=== PATIENT | male | born 1955 | race Caucasian/White ===

== ENCOUNTER 2019-10-25 15:39 | Outpatient (CLI) | payer BC, OTHER, SELFPAY ==
--- NOTE | ~2019-10-25 | US_ITS ---
US scrotum doppler INDICATION: Hydrocele. TECHNIQUE: Testicular sonogram utilizing grayscale and color Doppler COMPARISON: Ultrasound dated 10/29/2017 FINDINGS: The testes are normal in size and appearance. No focal lesions are seen. The right testes measures 4.2 x 3.4 x 3.1 cm centimeters, and the left testis measures 4 x 3.3 x 3.1 cm cm. There is n ormal vascular flow to both testes. The right and left epididymides appear normal. There are bilateral hydroceles, left greater than right. No evidence for varicocele. IMPRESSION: 1. Bilateral hydroceles, moderate on the left and mild on the right. Reviewed, dictated and finalized at location A. [employer]
== END 2019-10-25 15:40 | disposition home or self-care (01) ==
LOC: ANHIMG 15:45
PROVIDERS: PCP Family Medicine; Visit Provider Urology
DX: N43.3 Hydrocele, unspecified (principal)
CPT/HCPCS: 76870; 93976

== ENCOUNTER 2020-04-09 16:54 | Outpatient (CLI) | payer BC, OTHER, SELFPAY ==
--- NOTE | ~2020-04-09 | US_ITS ---
EXAMINATION: US venous doppler LE EXAM DATE: 04/09/2020 17:27 INDICATION: Acute embolism and thrombosis. TECHNIQUE: Multiple grayscale, color flow and Doppler images of the right lower extremity deep venous system obtained and reviewed. There is no prior study for comparison. FINDINGS: RIGHT SIDE Common femoral: -------- Normal. Profunda femoral: ------- Normal. Femoral: Normal. Popliteal: Normal. Posterior tibial: --------- Normal. Peroneal: Normal. Gastrocnemius: Not visualized. Soleus: Not visualized. Greater saphenous: -----Thrombosed mid to distal aspect.. Lesser saphenous: ------ Not visualized. IMPRESSION: 1. Right greater saphenous superficial venous thrombosis. 2. No evidence of deep venous thrombosis. Reviewed, dictated and finalized at location A.
== END 2020-04-09 16:55 | disposition home or self-care (01) ==
PROVIDERS: PCP Family Medicine; Visit Provider Family Medicine
DX: I82.811 Embolism and thrombosis of superficial veins of right lower extremity (principal)
CPT/HCPCS: 93971

== ENCOUNTER 2020-11-04 09:57 | Emergency (ER) | payer BC, OTHER, SELFPAY ==
[2020-11-04 09:59] VITALS: BP 131/82; PULSE 86; RESP 16; TEMP 35.9; O2SAT 97
[2020-11-04] MEDS: SODIUM CHLORIDE 0.9% IV 500 ML 999 ML IV CONT (10:43)
[2020-11-04 10:56] LABS: Basophils Percent Auto 0.5 % (0.2-1.2); Eosinophils Percent Auto 0.2 % (0-4.4); Hematocrit 44.9 % (42.0-52.0); Immature Granulocyte Absolute 0.01 K/mm3 (0.00-0.031); Immature Granulocyte Percent A 0.1 % (0-0.5); Lymphocytes Absolute Auto 0.53 K/mm3 (0.9-3.2); Lymphocytes Percent Auto 6.2 % (18.3-44.2); Mean Corpuscular HGB Conc 33.4 g/dl (32-36); Mean Corpuscular Hemoglobin 28.4 pg (26-34); Mean Platelet Volume 9.9 fl (7.4-10.4); Monocytes Absolute Auto 0.5 K/mm3 (0.1-0.6); Monocytes Percent Auto 6.3 % (2.6-8.5); Neutrophils Absolute Auto 7.5 K/mm3 (1.3-6.7); Neutrophils Percent Auto 86.7 % (45.5-73.1); Platelet Count Result 279 k/mm3 (150-375); Red Blood Count 5.28 M/mm3 (4.6-6.20); Red Cell Distribution Width 13.6 % (11.5-14.5); White Blood Count 8.6 K/mm3 (4.5-10.0)
[2020-11-04 10:59] LABS: Add Urine Microscopic? YES; Appearance Urine Clear (Clear); Bilirubin Urine Negative (Negative); Blood Urine Negative (Negative); Color Urine Yellow (Yellow); Glucose Urine UA Negative (Negative); Ketones Urine 1+ mg/dL (Negative); Leukocyte Esterase Ur Negative LEU/UL (Negative); Mucus Urine Rare /lpf; Nitrate Urine Negative (Negative); Protein Urine 1+ mg/dL (Negative); RBC Urine 0-2 /hpf (0-2); Urobilinogen Urine Negative mg/dL (<2.0); WBC Urine 0-3 /hpf
[2020-11-04 11:01] LABS: Specific Grav Ur 1.041 (1.001-1.035)
[2020-11-04 11:11] LABS: Anion Gap 10 mmol/L (8-16); Blood Urea Nitrogen 25 mg/dL (9-20); Calcium 9.2 mg/dL (8.4-10.2); Carbon Dioxide 22 mmol/L (22-30); Chloride 104 mmol/L (98-107); Estimated CRCL calculation 88 ml/min; Estimated Glomerular Filt Rate > 60; Glucose 169 mg/dL (75-110); Potassium 3.9 mmol/L (3.4-5.0); Sodium 136 mmol/L (137-145)
[2020-11-04 11:28] VITALS: BP 142/64; PULSE 78; RESP 14; O2SAT 98
--- NOTE | 2020-11-04 12:01 | ED.GENADULT ---
HPI - General Adult General Chief complaint: Urogenital-Male Stated complaint: urinary retention Time Seen by Provider: 11/04/20 10:07 Source: patient Mode of arrival: ambulatory Limitations: no limitations History of Present Illness HPI narrative: Patient is a 65-year-old male who presents to emergency department for evaluation of dysuria that began in the middle of the night with inability to urinate noting suprapubic discomfort and pain radiating to the right upper back at this time patient denies similar occurrence in the past patient notes Thursday began to have difficulty with urination. Patient notes the symptoms progressed until he was unable to urinate. Patient has seen Dr. Vargas with urology in the past on arrival patient does not appear to be distressed or uncomfortable Related Data Allergies Allergy/AdvReac Type Severity Reaction Status Date / Time adhesive tape Allergy Intermediate BLISTERS/ Verified 11/04/20 10:09 cephalexin [From Keflex] Allergy Intermediate Hives Verified 11/04/20 10:09 Sulfa (Sulfonamide Allergy Mild HIVES Verified 11/04/20 10:09 Antibiotics) hydrocodone Allergy Unknown Rash Verified 11/04/20 10:09 Review of Systems Review of Systems: All systems reviewed & are unremarkable except as noted in HPI and below PMFSH Surgical History Surgical History H/O hernia repair H/O partial resection of colon Family History Family History Father Hypertension Mother Hypertension Family history of Alzheimer's disease, Onset Age: 88 Sibling Family history of malignant neoplasm, Onset Age: 52 Carcinoma of colon Other Diabetes mellitus Family history of cardiovascular disease Social History Social History Smoking status: Never smoker Alcohol intake: never Exam Narrative: Exam Narrative: GENERAL: Well-appearing, well-nourished, and in no acute distress. HEAD: Normocephalic, atraumatic. EYES: PERRLA and EOMI. ENT: Nares clear, no rhinorrhea or epistaxis. Mucous membranes moist. CHEST: Clear to auscultation. No respiratory distress. No wheezes rales or rhonchi HEART: Regular rate and rhythm. No murmur heard. Normal peripheral pulses. ABDOMEN: Soft, suprapubic tenderness at the level of the bladder, nondistended EXTREMITIES: Normal range of motion. No edema. SKIN: Warm, dry, no rash. NEURO: No focal deficits. Alert and oriented x3. PSYCH: Normal mood and affect. Course Course Emergency Course: Patient evaluated the emergency department for dysuria was found to be in urinary retention Sidhu catheter was placed he is feeling much better at this time patient denies any pain after the catheter was inserted he is afebrile nontoxic-appearing no distress and felt appropriate for outpatient reevaluation Vital Signs Vital signs: Vital Signs Temperature 96.7 F L 11/04/20 09:59 Pulse Rate 86 11/04/20 09:59 Respiratory Rate 16 11/04/20 09:59 Blood Pressure 131/82 11/04/20 09:59 Pulse Oximetry 97 11/04/20 09:59 Temperature 96.7 F L 11/04/20 09:59 Pulse Rate 78 11/04/20 11:28 Respiratory Rate 14 11/04/20 11:28 Blood Pressure 142/64 H 11/04/20 11:28 Pulse Oximetry 98 11/04/20 11:28 Medical Decision Making [facility] Narrative Medical decision making narrative: Patient will be discharged home with Sidhu catheter in place likely benign prostatic hypertrophy as the etiology will be started on finasteride while waiting to see Dr. Vargas patient agrees with this plan is also been provided with reasons to return Vital Signs Vital Signs: Vital Signs Temperature 96.7 F L 11/04/20 09:59 Pulse Rate 86 11/04/20 09:59 Respiratory Rate 16 11/04/20 09:59 Blood Pressure 131/82 11/04/20 09:59 Pulse Oximetry 97 11/04/20 09:59 Temperature 96.7 F L 11/04/20 09:59 Pul
== END 2020-11-04 12:34 | disposition home or self-care (01) ==
PROVIDERS: Emergency Medicine Emergency Medical Services; Emergency Provider Emergency Medicine; PCP Family Medicine
DX: R33.9 Retention of urine, unspecified (principal); Z90.49 Acquired absence of other specified parts of digestive tract
CPT/HCPCS: 36415; 51702; 80048; 81001; 85025; 87086; 96365; 99284; J0131; J7040

== ENCOUNTER 2020-11-10 13:12 | Emergency (ER) | payer BC, OTHER, SELFPAY ==
--- NOTE | ~2020-11-10 | CT_ITS ---
EXAMINATION: CT abdomen pelvis wo con DATE: 11/10/2020 15:26 INDICATION: Right flank pain TECHNIQUE: Computed tomography (CT) of the abdomen and pelvis was performed without intravenous contr ast. The dose-length product (DLP) was 319.52 mGy-cm. Automated exposure control and iterative recons truction technique were employed. COMPARISON: 12/26/2016 FINDINGS: The lung bases are clear. The heart size is normal. The gallbladder is surgically absent. T he liver, spleen, pancreas, and adrenal glands are normal. Cysts of the kidneys measure up to 2 cm on the left. No stones are identified in the kidneys, ureters, or bladder. There is no hydronephrosis o r hydroureter. The bladder is decompressed by Sidhu catheter. No pathologically enlarged abdominal or pelvic lymph nodes are identified. There is no free intraperitoneal gas or evidence of bowel obstruc tion. There is a surgical anastomosis at the rectosigmoid junction. The appendix is normal. There is mild lumbar spondylosis. IMPRESSION: 1. No CT correlate for the patient's symptoms. Reviewed, dictated and finalized at location A. [employer]
--- NOTE | ~2020-11-10 | XR_ITS ---
EXAMINATION: XR abdomen/kub 1V INDICATION: Right flank pain TECHNIQUE: Supine views of the abdomen were obtained on 2 radiographs. COMPARISON: CT from today FINDINGS: No urolithiasis is identified. The bowel gas pattern is normal. There are no dilated loops of bowel. Cholecystectomy clips are noted in the right upper quadrant. There is a surgical anastomosi s in the pelvis. Mild hip osteoarthritis is noted. IMPRESSION: 1. No urolithiasis identified. Reviewed, dictated and finalized at location A. [employer]
[2020-11-10 13:19] VITALS: BP 147/106; PULSE 107; RESP 18; TEMP 36.1; O2SAT 97
[2020-11-10 13:22] VITALS: BP 97/85; PULSE 101; RESP 18; TEMP 37.1; O2SAT 99
--- NOTE | 2020-11-10 13:38 | ED.ABDPAIN ---
HPI - Abdominal Pain General Chief Complaint: Urogenital-Male Stated Complaint: unable to urinate after loving Time Seen by Provider: 11/10/20 13:21 Source: patient Mode of arrival: ambulatory Limitations: no limitations History of Present Illness HPI narrative: This is a 65 year old male who presents for evaluation of difficulty urinating. He was evaluated for urinary retention 1 week ago. He had a loving catheter placed on 11/04/20 and it was removed in his urologist's office yesterday. He has been having burning with urinary and dribbling since it was removed. He reports right lower back pain. He has lower abdominal pressure. He denies fever or chills. He does report having a migraine headache today. Related Data Allergies Allergy/AdvReac Type Severity Reaction Status Date / Time adhesive tape Allergy Intermediate BLISTERS/ Verified 11/10/20 13:22 cephalexin [From Keflex] Allergy Intermediate Hives Verified 11/10/20 13:22 Sulfa (Sulfonamide Allergy Mild HIVES Verified 11/10/20 13:22 Antibiotics) hydrocodone Allergy Unknown Rash Verified 11/10/20 13:22 Review of Systems Review of Systems: All systems reviewed & are unremarkable except as noted in HPI and below Constitutional: Constitutional: Denies chills and Denies fever(s) Cardiovascular: Cardiovascular: Denies chest pain Respiratory: Respiratory: Denies cough and Denies dyspnea Gastrointestinal: Gastrointestinal: Reports abdominal pain, Denies diarrhea, Denies nausea and Denies vomiting Genitourinary: Genitourinary: Reports oliguria, Reports dysuria and Reports urinary frequency Musculoskeletal: Musculoskeletal: Reports back pain Neurologic: Reports headache(s) [facility] Past Medical History Medical History (Updated 11/10/20 @ 18:23 by Antonieta Joseph MD) Essential (primary) hypertension Lumbar spondylosis Mixed hyperlipidemia Surgical History Surgical History H/O hernia repair H/O partial resection of colon Family History Family History Father Hypertension Mother Hypertension Family history of Alzheimer's disease, Onset Age: 88 Sibling Family history of malignant neoplasm, Onset Age: 52 Carcinoma of colon Other Diabetes mellitus Family history of cardiovascular disease Social History Social History Smoking status: Never smoker Alcohol intake: never Gender identity (if verbalized by the patient): Male Exam Const: General: no acute distress and alert Orientation/consciousness: patient oriented x3 Eyes: Pupils: Equal, round and reactive pupils present EOM: EOMs intact bilaterally Chest: Chest palpation & inspection: normal inspection of the chest Resp: Effort & Inspection: normal respiratory effort and no retractions Auscultation: clear to auscultation bilaterally Cardio: Rate: regular rate Rhythm: regular rhythm Heart sounds: no murmurs GI: GI Palp: Yes Soft to palpation, Yes Tenderness to palpation present (GI) (RUQ, RLQ), No Guarding due to palpation present (GI) and No Rebound tenderness present Skin: General skin exam: normal color Rashes: no rashes Neuro: General: patient oriented x3 and CN's II-XI intact bilaterally Extrem: Other: right arm contracture from previous injury Psych: Mental Status: mental status grossly normal Affect: normal affect Course Reevaluation(s) Reevaluation #1: I Discussed with patient labs. He will be started on antibiotics and discharged with antibiotics. HE has appointment with DR. Vargas on Thursday. Patient reports now back pain is chronic. He has no other complaints. Date: 11/10/20 Time: 16:44 Vital Signs Vital signs: Vital Signs Temperature 97 F L 11/10/20 13:19 Pulse Rate 107 H 11/10/20 13:19 Respiratory Rate 18 11/10/20 13:19 Blood Pressure 147/106 H 11/10/20 13:
[2020-11-10] MEDS: SODIUM CHLORIDE 0.9% IV 1,000 ML 999 ML IV CONT (14:01)
[2020-11-10 14:11] LABS: Basophils Absolute Auto 0.1 K/mm3 (0.0-0.1); Basophils Percent Auto 1.1 % (0.2-1.2); Eosinophils Absolute Auto 0.1 K/mm3 (0-0.3); Eosinophils Percent Auto 0.6 % (0-4.4); Hematocrit 47.2 % (42.0-52.0); Hemoglobin 15.8 g/dL (14.0-18.0); Immature Granulocyte Absolute 0.04 K/mm3 (0.00-0.031); Immature Granulocyte Percent A 0.4 % (0-0.5); Lymphocytes Absolute Auto 0.83 K/mm3 (0.9-3.2); Lymphocytes Percent Auto 8.7 % (18.3-44.2); Mean Corpuscular HGB Conc 33.5 g/dl (32-36); Mean Corpuscular Hemoglobin 28.8 pg (26-34); Monocytes Absolute Auto 0.9 K/mm3 (0.1-0.6); Monocytes Percent Auto 9.3 % (2.6-8.5); Neutrophils Absolute Auto 7.6 K/mm3 (1.3-6.7); Neutrophils Percent Auto 79.9 % (45.5-73.1); Platelet Count Result 422 k/mm3 (150-375); Red Blood Count 5.49 M/mm3 (4.6-6.20); Red Cell Distribution Width 13.6 % (11.5-14.5); White Blood Count 9.5 K/mm3 (4.5-10.0)
[2020-11-10 14:25] LABS: Lactic Acid Reflex 1.9 mmol/L (0.7-2.1)
[2020-11-10 14:26] LABS: Alanine Aminotransferase 30 U/L (4-50); Albumin Level 4.5 g/dL (3.5-5.1); Alkaline Phosphatase 52 U/L (38-126); Anion Gap 10 mmol/L (8-16); Aspartate Amino Transferase 22 U/L (17-59); Bilirubin,Total 0.5 mg/dL (0.2-1.3); Blood Urea Nitrogen 29 mg/dL (9-20); Carbon Dioxide 28 mmol/L (22-30); Chloride 96 mmol/L (98-107); Estimated CRCL calculation 68 ml/min; Estimated Glomerular Filt Rate > 60; Glucose 105 mg/dL (75-110); Lipase 86 U/L (23-300); Potassium 3.9 mmol/L (3.4-5.0); Sodium 134 mmol/L (137-145)
[2020-11-10 14:31] LABS: Add Urine Microscopic? YES; Appearance Urine Clear (Clear); Bilirubin Urine Negative (Negative); Blood Urine Negative (Negative); Color Urine Amber (Yellow); Glucose Urine UA Negative (Negative); Ketones Urine Negative (Negative); Leukocyte Esterase Ur Negative LEU/UL (Negative); Mucus Urine Rare /lpf; Nitrate Urine Positive (Negative); Protein Urine Negative (Negative); RBC Urine 0-2 /hpf (0-2); Specific Grav Ur 1.014 (1.001-1.035); WBC Urine 0-3 /hpf
[2020-11-10 15:43] VITALS: BP 129/62; PULSE 84; RESP 16; O2SAT 98
== END 2020-11-10 17:40 | disposition home or self-care (01) ==
PROVIDERS: Emergency Provider General Practice; PCP Family Medicine
DX: N39.0 Urinary tract infection, site not specified (principal); R33.9 Retention of urine, unspecified; R10.9 Unspecified abdominal pain; I10 Essential (primary) hypertension; E78.2 Mixed hyperlipidemia; Z90.49 Acquired absence of other specified parts of digestive tract; M47.816 Spondylosis without myelopathy or radiculopathy, lumbar region
CPT/HCPCS: 36415; 51702; 74018; 74176; 80053; 81001; 83605; 83690; 85025; 87086; 96361; 96365; 99284; J0131; J7030

== ENCOUNTER 2021-06-27 12:13 | Emergency (ER) | payer BC, OTHER, SELFPAY ==
--- NOTE | ~2021-06-27 | XR_ITS ---
EXAMINATION: [id number] DATE: 06/27/2021 12:47 INDICATION: Lateral right rib pain. Fall 4 weeks ago. TECHNIQUE: A frontal view of the chest and 2 views on 3 radiographs of the right ribs were obtained. COMPARISON: Chest single view 12/24/2016, CT abdomen and pelvis 11/10/2020 FINDINGS: There is mild scarring at left lung apex. No pleural effusion or pneumothorax. The heart si ze is normal. Surgical clips in the right upper quadrant are likely from cholecystectomy. There is a fracture of right 10th rib. IMPRESSION: 1. Fracture of right 10th rib. Reviewed, dictated and finalized at location A.
[2021-06-27 12:25] VITALS: BP 124/73; PULSE 60; RESP 18; TEMP 36.6; O2SAT 99
--- NOTE | 2021-06-27 12:25 | ED.BACK ---
HPI - Back Pain/Injury General Chief Complaint: Back Pain/Injury Stated Complaint: Rt Side Pain Source: patient and RN notes reviewed Mode of arrival: ambulatory Limitations: no limitations History of Present Illness HPI Narrative: Gaurav is a 65-year-old male patient who fell getting out of the back of his truck and fell hitting his right ribs on the back of his truck. Patient states the incident occurred 4 to 5 weeks ago. Patient states that he has a prescription for tramadol and he will take 1 with severe pain. Otherwise he has not been using any ice heat or other measures. Patient states he knew to take deep breaths frequently. Patient denies cough fever or any other issues. Patient denies any loss of consciousness during the incident. Patient states there was a bruising 4 to 5 weeks ago after injury. Patient states bruising has been gone the last 3 weeks. MD elicited complaint: other (right rib pain) Pertinent past history: prior back pain Timing: constant Severity: moderate Similar Symptoms Previously: No Related Data Home Medications Medication Instructions Recorded Confirmed finasteride 5 mg tablet 5 mg PO DAILY 11/21/20 06/27/21 Allergies Allergy/AdvReac Type Severity Reaction Status Date / Time adhesive tape Allergy Mild BLISTERS/ Verified 06/27/21 12:34 cephalexin [From Keflex] Allergy Mild Hives Verified 06/27/21 12:34 hydrocodone Allergy Mild Rash Verified 06/27/21 12:34 Sulfa (Sulfonamide Allergy Mild HIVES Verified 06/27/21 12:34 Antibiotics) Review of Systems Review of Systems: CONSTITUTIONAL: Denies body aches, fever, chills, or sweats. EYES: Denies visual changes, redness, or discharge. ENT: Denies rhinorrhea, congestion, sore throat, or otalgia. CARDIOVASCULAR: Denies chest pain, palpitations, or edema. RESPIRATORY: Denies cough or dyspnea. GASTROINTESTINAL: Denies abdominal pain, nausea, vomiting, or diarrhea. GENITOURINARY: Denies dysuria or hematuria. SKIN: Denies rash, itching, or wounds. MUSCULOSKELETAL: + right rib pain, denies back pain, joint pain, or myalgia. NEUROLOGIC: Denies headache, numbness, tingling, or weakness. PSYCH: Denies depression or anxiety. All systems reviewed & are unremarkable except as noted in HPI and below PMFSH Past Medical History Medical History Essential (primary) hypertension Lumbar spondylosis Mixed hyperlipidemia Surgical History Surgical History H/O hernia repair H/O partial resection of colon Family History Family History Father Hypertension Mother Hypertension Family history of Alzheimer's disease, Onset Age: 88 Sibling Family history of malignant neoplasm, Onset Age: 52 Carcinoma of colon Other Diabetes mellitus Family history of cardiovascular disease Social History Social History Alcohol intake: never Gender identity (if verbalized by the patient): Male Comments At time of signature, I have reviewed and agree with nursing past medical, surgical, social and family history unless otherwise noted. Please see nursing chart for further information. There is no relevant family history pertinent to the presenting complaint Exam Narrative: GENERAL: Well-appearing, well-nourished, and in no acute distress. HEAD: Normocephalic, atraumatic. EYES: EOMI. No redness or drainage. Conjunctivae normal. ENT: Mucous membranes pink and moist. Nares clear. No rhinorrhea. NECK: Normal AROM. Supple. No lymphadenopathy. CHEST: No respiratory distress. Clear to auscultation. MUSCULOSKELETAL: No bony tenderness. EXTREMITIES: Normal range of motion. No edema. SKIN: Warm, dry, no rash. Capillary refill normal. Normal skin turgor. NEURO: No focal deficits. Alert and oriented x3. Gait steady. PSYCH: Normal affec
== END 2021-06-27 13:15 | disposition home or self-care (01) ==
PROVIDERS: Emergency Provider Nurse Practitioner Family; PCP Family Medicine
DX: S22.31XA Fracture of one rib, right side, initial encounter for closed fracture (principal); W17.89XA Other fall from one level to another, initial encounter; I10 Essential (primary) hypertension; M47.816 Spondylosis without myelopathy or radiculopathy, lumbar region; E78.2 Mixed hyperlipidemia
CPT/HCPCS: 71101; 99213; G0463

== ENCOUNTER 2022-12-04 05:36 | Emergency (ER) | payer MEDICARE, OTHER, BC, SELFPAY ==
--- NOTE | ~2022-12-04 | XR_ITS ---
Right ankle Technique: AP, oblique, and lateral views were obtained. Clinical History: Pain Findings: There is a traumatic, oblique, mildly displaced fracture of the distal fibular shaft, with fracture centered approximately 6 cm proximal to the tip of the lateral malleolus. There is also a tr ansverse, mildly displaced fracture of the medial malleolus. Small longitudinally oriented posterior malleolus fracture present on lateral view, minimally displaced. There is mild widening of the medial aspect of the ankle mortise.. Mild soft tissue swelling noted. Impression: Traumatic trimalleolar fractures, as detailed above, mildly displaced. Mild widening of the medial aspect of the ankle mortise. Reviewed, dictated and finalized at location . Impression: Traumatic trimalleolar fractures, as detailed above, mildly displaced. Mild widening of the medial aspect of the ankle mortise.
[2022-12-04 05:41] VITALS: BP 139/69; PULSE 62; RESP 18; TEMP 36.7; O2SAT 99
--- NOTE | 2022-12-04 05:47 | ED.GENADULT ---
HPI - General Adult General Chief complaint: Extremity Injury, Lower Stated complaint: R foot pain, s/p fall Time Seen by Provider: 12/04/22 05:44 History of Present Illness HPI narrative: This is a 67-year-old male presenting ED after he fell down 3 stairs. He says his right ankle got caught underneath him. Then had severe pains been unable to bear weight. He denies any other injuries. The fall was purely mechanical. Related Data Allergies Allergy/AdvReac Type Severity Reaction Status Date / Time adhesive tape Allergy Mild BLISTERS/ Verified 08/26/22 13:29 cephalexin [From Keflex] Allergy Mild Hives Verified 08/26/22 13:29 hydrocodone Allergy Mild Rash Verified 08/26/22 13:29 Sulfa (Sulfonamide Allergy Mild HIVES Verified 08/26/22 13:29 Antibiotics) PMFSH Past Medical History Medical History Allergies Arthritis of knee, right Essential (primary) hypertension GERD (gastroesophageal reflux disease) Lumbar spondylosis Mixed hyperlipidemia Surgical History Surgical History H/O hernia repair H/O partial resection of colon History of cholecystectomy History of hand surgery Family History Family History Father Hypertension Heart disease Mother Hypertension Family history of Alzheimer's disease, Onset Age: 88 Sibling Family history of malignant neoplasm, Onset Age: 52 Carcinoma of colon Other Diabetes mellitus Family history of cardiovascular disease Social History Social History Smoking status: Never smoker Alcohol intake: never Substance use: never Current Housing: Decline to Answer Concerned About Future Housing: Decline to Answer Difficulty Paying Gas/Electric Bills: Decline to Answer Difficulty Paying for Meds: Decline to Answer Currently Unemployed: Decline to Answer Education: Decline to Answer Difficulty w/ Childcare or Family Care: Decline to Answer Living arrangements: with family Gender identity (if verbalized by the patient): Male Exam Narrative: APPEARANCE: No apparent distress. Head: atraumatic. EYES: EOMI, NOSE: Atraumatic NECK: Trachea midline RESPIRATORY: No increased rate of breathing Clear to auscultation CARDIOVASCULAR: RRR, ABDOMINAL: Non-distended MUSCULOSKELETAl: focal exam of the right lower extremity revealed tenderness palpation on posterior aspect of the medial and lateral malleolus. No obvious deformities or bruising. Pulses are +2 and sensation light touch is intact. NEURO: Alert. Moving 4/4 extremities SKIN:: Warm, dry. Normal color PSYCHIATRIC: Normal affect Course Vital Signs Vital signs: Vital Signs Temperature 98.1 F 12/04/22 05:41 Pulse Rate 62 12/04/22 05:41 Respiratory Rate 18 12/04/22 05:41 Blood Pressure 139/69 12/04/22 05:41 Pulse Oximetry 99 12/04/22 05:41 Temperature 98.1 F 12/04/22 05:41 Pulse Rate 62 12/04/22 05:41 Respiratory Rate 18 12/04/22 05:41 Blood Pressure 139/69 12/04/22 05:41 Pulse Oximetry 99 12/04/22 05:41 Procedures Orthopedic Splinting/Casting Injury #1: Side: right Lower Extremity Injury Location: ankle Lower Extremity Immobilizer: stirrup splint Splint: customized in ED Pre-Procedure Neuro Vascular Exam: normal Post-Procedure Neuro Vascular Exam: normal Other Orthopedic Equipment: crutches Medical Decision Making MDM Narrative Medical decision making narrative: -Presentation: 67-year-old male presenting with ankle pain after fall. -DDX includes but is not limited to: Ankle sprain, fracture -Co-morbidities complicating care: hypertension, allergies to hydrocodone -Social determinants of health: patient is retired used to work at [employer]. He is accompanied b
[2022-12-04] MEDS: ACETAMINOPHEN 500 MG TABLET 1000 MG PO (05:51)
[2022-12-04] MEDS: oxyCODONE HCL (*CRX) 5 MG TAB IR PO (05:51)
[2022-12-04] MEDS: IBUPROFEN 400 MG TABLET 800 MG PO (05:52)
--- NOTE | 2022-12-04 06:57 | PC.NURSE ---
stirrup splint placed with help of doctor to right lower extremity, crutches teaching given
== END 2022-12-04 07:30 | disposition home or self-care (01) ==
PROVIDERS: Emergency Provider Emergency Medicine; PCP Emergency Medicine
DX: S82.851A Displaced trimalleolar fracture of right lower leg, initial encounter for closed fracture (principal); I10 Essential (primary) hypertension; E78.2 Mixed hyperlipidemia; K21.9 Gastro-esophageal reflux disease without esophagitis; M17.11 Unilateral primary osteoarthritis, right knee; Z90.49 Acquired absence of other specified parts of digestive tract; W10.9XXA Fall (on) (from) unspecified stairs and steps, initial encounter
CPT/HCPCS: 29515; 73610; 99283; 99284; A9270

== ENCOUNTER 2022-12-08 08:48 | Outpatient (CLI) | payer MEDICARE, BC, OTHER, SELFPAY ==
[2022-12-08 12:32] LABS: INR 1.1; Prothrombin Time 13.4 Seconds (11.1-14.7)
[2022-12-08 12:33] LABS: Partial Thromboplastin Time 26.4 SECONDS (22.3-36.8)
[2022-12-08 12:36] LABS: Alanine Aminotransferase 86 U/L (6-50); Albumin Level 4.3 g/dL (3.5-5.1); Alkaline Phosphatase 63 U/L (38-126); Anion Gap 6 mmol/L (8-16); Aspartate Amino Transferase 49 U/L (17-59); Basophils Absolute Auto 0.1 K/mm3 (0.0-0.1); Bilirubin,Total 0.7 mg/dL (0.2-1.3); Blood Urea Nitrogen 19 mg/dL (9-20); Calcium 9.3 mg/dL (8.4-10.2); Carbon Dioxide 26 mmol/L (22-30); Chloride 103 mmol/L (98-107); Eosinophils Absolute Auto 0.2 K/mm3 (0-0.3); Eosinophils Percent Auto 2.4 % (0-4.4); Estimated Glomerular Filt Rate > 60; Glucose 114 mg/dL (65-110); Hematocrit 44.5 % (42.0-52.0); Hemoglobin 14.4 g/dL (14.0-18.0); Immature Granulocyte Absolute 0.01 K/mm3 (0.00-0.031); Immature Granulocyte Percent A 0.2 % (0-0.5); Lymphocytes Absolute Auto 0.69 K/mm3 (0.9-3.2); Lymphocytes Percent Auto 11.2 % (18.3-44.2); Mean Corpuscular HGB Conc 32.4 g/dl (32-36); Mean Corpuscular Hemoglobin 27.9 pg (26-34); Mean Corpuscular Volume 86.1 fl (80-100); Mean Platelet Volume 10.2 fl (7.4-10.4); Monocytes Absolute Auto 0.6 K/mm3 (0.1-0.6); Monocytes Percent Auto 9.1 % (2.6-8.5); Neutrophils Absolute Auto 4.7 K/mm3 (1.3-6.7); Neutrophils Percent Auto 76.1 % (45.5-73.1); Platelet Count Result 304 k/mm3 (150-375); Red Blood Count 5.17 M/mm3 (4.6-6.20); Red Cell Distribution Width 13.5 % (11.5-14.5); Sodium 135 mmol/L (137-145); White Blood Count 6.1 K/mm3 (4.5-10.0)
== END 2022-12-08 08:49 | disposition home or self-care (01) ==
LOC: ANHGOSHLAB 08:53
PROVIDERS: PCP Emergency Medicine; Visit Provider Family Medicine
DX: I10 Essential (primary) hypertension (principal); Z01.818 Encounter for other preprocedural examination
CPT/HCPCS: 36415; 80053; 85025; 85610; 85730

== ENCOUNTER 2022-12-12 00:55 | Day surgery (SDC) | payer MEDICARE, BC, OTHER, SELFPAY ==
[2022-12-08 12:20] VITALS: BMI 30.1
--- NOTE | 2022-12-08 12:45 | PC.NURSE ---
Report to the Outpatient Waiting Room, entrance under the green pavilion located off [facility], at time __10:00am on date ___12/12/22____. Planned Procedure Time: __12:00PM . Time changes happen often and if your time is changed the preop area will call you the afternoon before. - You and your visitor will be asked to self-screen and do not enter if you have any COVID symptoms. - Only one visitor is requested with a max of two and NO children visitors are allowed at this time. - The patient visitor may be requested to leave or wait in car when not with patient due to distancing restrictions. - A mask is optional within the hospital at this time. Patients may have clear liquids (water, carbonated beverages, clear teas, apple juice) until 3 hours prior to surgery with a maximum of 20 ounces. - No food from midnight until time of surgery Take the following medications with a SIP of water the morning of surgery: ___OXYCODONE NEEDED DO NOT STOP ANY OF YOUR OTHER PRESCRIPTION MEDICATIONS PRIOR TO SURGERY ?EXCEPT THE FOLLOWING Medications to discontinue per physician ___NONE Date to take last dose Please no make-up, nail khmer, hairspray, perfume, deodorant, or body powder the day of surgery. No jewelry (including any body piercings) or valuables the day of surgery, leave them at home. Please take a shower or bath the night before, or the morning of, surgery with an antibacterial soap. Wear comfortable, loose fitting clothing. Children are encouraged to wear pajamas. - Jewelry must be removed prior to entering the operating room. Rings and piercings that are not removed may be cut off. - The hospital will not accept responsibility for valuables. - Please leave all valuables, including medications, at home the day of surgery. If you are going home after surgery, a licensed meals on wheels driver must drive you home. - NO public transportation without another adult if you receive anesthesia. - We recommend that an adult stay with you for 24 hours following discharge. - We also recommend that you do not drive, make important decision, drink alcoholic beverages, or take any drugs that were not prescribed by your health care provider for at least 24 hours after your discharge time. Follow any additional instructions given to you from your surgeon. If you or anyone in your household have experienced Covid symptoms in the past week, please notify your surgeon or the nurse liaison at the phone number below for possible testing. Telephone instructions given to __PATIENT and asked if any additional questions and then verbalized understanding. Patient advised to call surgeon office or pre surgery nurse liaison [phone] if any additional questions.
--- NOTE | 2022-12-10 11:24 | PM.IMHP ---
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 He injured his ankle when he missed a step at home and fell hard. This happened on 12/04. He had immediate pain and swelling in the ankle. He went to the emergency room had x-rays done which show a displaced medial and lateral malleolar fractures. There is a small fracture off the posterior malleolus as well. There is lateral subluxation of the talus to the tibia. Patient was seen in the office on 12/05. X-rays reviewed by Dr Grimes. He did recommend ORIF of ankle. This is an unstable fracture is best treated with ORIF. Patient presents today for that. Review of Systems Review of Systems: All systems reviewed & are unremarkable except as noted in HPI and below PMFSH Past Medical History Medical History Allergies Arthritis of knee, right Essential (primary) hypertension GERD (gastroesophageal reflux disease) Lumbar spondylosis Mixed hyperlipidemia Surgical History Surgical History H/O hernia repair H/O partial resection of colon History of cholecystectomy History of hand surgery History of surgery on arm Family History Family History Father Hypertension Heart disease Mother Hypertension Family history of Alzheimer's disease, Onset Age: 88 Sibling Family history of malignant neoplasm, Onset Age: 52 Carcinoma of colon Other Diabetes mellitus Family history of cardiovascular disease Social History Social History Smoking status: Never smoker Alcohol intake: never Substance use: never Lack of Transportation: No Lack of Food: Never True Current Housing: I Have Housing Concerned About Future Housing: No Difficulty Paying Gas/Electric Bills: No Difficulty Paying for Meds: No Currently Unemployed: No Education: Decline to Answer Difficulty w/ Childcare or Family Care: No Living arrangements: with family Additional living arrangements comments: Gender identity (if verbalized by the patient): Male Spiritual care concerns: No Meds Home Medications and Allergies Home Medications Medication Instructions Recorded Confirmed Type finasteride 5 mg tablet 5 mg PO DAILY #90 tabs 12/25/21 12/08/22 Rx tamsulosin 0.4 mg capsule (Flomax) 0.4 mg PO DAILY #10 caps 12/25/21 12/08/22 Rx tramadol 50 mg tablet 50 mg PO Q6H PRN pain 90 days #180 09/25/22 12/08/22 Rx tabs acetaminophen 500 mg tablet 1,000 mg PO TID PRN peterson 7 days #42 12/04/22 12/08/22 Rx tabs oxycodone 5 mg capsule 5 mg PO Q4H PRN pain #20 caps 12/04/22 12/08/22 Rx simvastatin 40 mg tablet 40 mg PO DAILY #90 tabs 12/04/22 12/08/22 Rx famotidine 40 mg tablet 40 mg PO DAILY 12/08/22 12/08/22 History lisinopril 10 mg tablet 10 mg PO QAM 12/08/22 12/08/22 History triamterene 37.5 1 tablet PO QAM 12/08/22 12/08/22 History mg-hydrochlorothiazide 25 mg tablet Allergies Allergy/AdvReac Type Severity Reaction Status Date / Time adhesive tape Allergy Mild BLISTERS Verified 12/08/22 13:18 cephalexin [From Keflex] Allergy Mild Hives Verified 12/08/22 13:18 hydrocodone Allergy Mild Rash Verified 12/08/22 13:18 Sulfa (Sulfonamide Allergy Mild HIVES Verified 12/08/22 13:18 Antibiotics) Exam Narrative: 67-year-old male alert pleasant. Is 5 ft 70879 lb. He is [id number] diffuse swelling around ankle. Calf is nontender. Skin is all intact without blistering. Reports normal sensation except to the lateral heel where he had sural nerve harvest. There is ecchymosis in the medial heel. 2+ dorsalis pedis pulse palpable. Resp: Auscultation: aysha
--- NOTE | 2022-12-11 16:23 | WPDANESEPPF ---
Anes - Initial Pre Proc Eval Procedure: Operation Date: 12/12/22 12:00 Proposed Procedures p Open Reduction Internal Fixation Right Mike B-C Trimalleolar Ankle Fracture - Gaurav Grimes MD Date/Time: 12/11/22 16:23 Surgeon: Gaurav Grimes MD Pre Op Diagnosis: right mike b-c ankle trimalleolar fracture Patient Data Age: 67 Gender: M Height: 1.8 m Weight: 98 kg Allergies Allergy/AdvReac Type Severity Reaction Status Date / Time adhesive tape Allergy Mild BLISTERS Verified 12/12/22 10:12 cephalexin [From Keflex] Allergy Mild Hives Verified 12/12/22 10:12 hydrocodone Allergy Mild Rash Verified 12/12/22 10:12 Sulfa (Sulfonamide Allergy Mild HIVES Verified 12/12/22 10:12 Antibiotics) Home Medications Medication Instructions Recorded Confirmed Type finasteride 5 mg tablet 5 mg PO DAILY #90 tabs 12/25/21 12/12/22 Rx tamsulosin 0.4 mg capsule (Flomax) 0.4 mg PO DAILY #10 caps 12/25/21 12/12/22 Rx tramadol 50 mg tablet 50 mg PO Q6H PRN pain 90 days #180 09/25/22 12/08/22 Rx tabs acetaminophen 500 mg tablet 1,000 mg PO TID PRN peterson 7 days #42 12/04/22 12/12/22 Rx tabs oxycodone 5 mg capsule 5 mg PO Q4H PRN pain #20 caps 12/04/22 12/12/22 Rx simvastatin 40 mg tablet 40 mg PO DAILY #90 tabs 12/04/22 12/12/22 Rx famotidine 40 mg tablet 40 mg PO DAILY 12/08/22 12/12/22 History lisinopril 10 mg tablet 10 mg PO QAM 12/08/22 12/12/22 History triamterene 37.5 1 tablet PO QAM 12/08/22 12/12/22 History mg-hydrochlorothiazide 25 mg tablet Patient hx anesthesia problems: none Family hx anesthesia problems: none Results Review: All pre-operative results and documents have been reviewed as part of the pre-operative evaluation. [facility] Past Medical History Medical History (Updated 12/11/22 @ 16:33 by Shiv Man MD) Allergies Arthritis of knee, right Essential (primary) hypertension GERD (gastroesophageal reflux disease) Lumbar spondylosis Mixed hyperlipidemia Obesity Surgical History Surgical History H/O hernia repair H/O partial resection of colon History of cholecystectomy History of hand surgery History of surgery on arm Family History Family History Father Hypertension Heart disease Mother Hypertension Family history of Alzheimer's disease, Onset Age: 88 Sibling Family history of malignant neoplasm, Onset Age: 52 Carcinoma of colon Other Diabetes mellitus Family history of cardiovascular disease Social History Social History Smoking status: Never smoker Alcohol intake: never Substance use: never Lack of Transportation: No Lack of Food: Never True Current Housing: I Have Housing Concerned About Future Housing: No Difficulty Paying Gas/Electric Bills: No Difficulty Paying for Meds: No Currently Unemployed: No Education: Decline to Answer Difficulty w/ Childcare or Family Care: No Living arrangements: with family Additional living arrangements comments: Gender identity (if verbalized by the patient): Male Spiritual care concerns: No Anes - Eval Final PreProcedure Day of Procedure 12/11/22 16:23 Patient weight: obese Heart: regular rate and rhythm Lungs: clear to auscultation and normal air movement Airway: Mallampati scale class II Neurological: alert and oriented Last oral intake: >/= 8 hours ASA classification: III Emergent: no Anesthetic plan: proceed Anesthesia type and monitoring: general LMA Results Review: All pre-operative results and documents have been reviewed as part of the pre-operative evaluation. Informed Consent: The patient's anesthetic plan and its attendant risks and benefits were discussed with the patient/family/POA. Questions were solicited and answers provided to the satisfaction of the patient/family/POA.
[2022-12-12] VITALS (12 sets, daily range): BP systolic 126–154; BP diastolic 71–88; PULSE 65–89; RESP 12–16; TEMP 36.3–36.8; O2SAT 94–100
--- NOTE | ~2022-12-12 | XR_ITS ---
EXAMINATION: XR surgery orthopedic DATE: 12/12/2022 14:34 INDICATION: ORIF right ankle fracture TECHNIQUE: 7 fluoroscopic images of the right ankle were obtained during procedure performed by Dr. Nuvia ruvalcaba. Radiologist was not present for the imaging or procedure. The amount of fluoroscopy time used during this procedure was 1.8 minutes. COMPARISON: None. FINDINGS: Initial images demonstrate a mildly displaced oblique fracture of the distal metaphyseal region of th e right fibula. The medial and posterior malleolar fractures are not appreciated on the initial monorail crane operator image. Subsequent images demonstrate reduction internal fixation with interfragmentary screw and lat eral plate and screw fixation of the lateral malleolar fracture which is subsequently in essentially anatomic alignment. The medial malleolar fracture which is also in essentially anatomic alignment ess entially fixed with cannulated lag screw. The small posterior malleolar fracture is obscured by the l ateral plate and screw fixation along the lateral projections. Ankle mortise is congruent. No other f ractures identified. IMPRESSION: 1. Essentially anatomic alignment post open reduction of a trimalleolar fracture of the right ankle w ith internal fixation of the medial malleolar and distal fibular fractures. Reviewed, dictated and finalized at location B. IMPRESSION: 1. Essentially anatomic alignment post open reduction of a trimalleolar fractur e of the right ankle with internal fixation of the medial malleolar and distal fibular fractures.
[2022-12-12] MEDS: LACTATED RINGERS 1,000 ML 30 ML IV CONT ×3 (10:38→17:32)
[2022-12-12] MEDS: KETOROLAC 15 MG/ML VIAL (*BKC) IV PUSH (10:39)
[2022-12-12 11:15] LABS: Vitamin D 25 Hydroxy 37.8 ng/mL
--- NOTE | 2022-12-12 11:52 | WPDANESPNB ---
Anes - Peripheral Nerve Block Date/Time: 12/12/22 11:52 I have discussed with the patient/family/POA the placement of a peripheral nerve block for post-operative pain management, including associated risks, benefits, complications, and side effects. Alternative methods of post-operative analgesia were detailed. Questions were solicited and answers provided to the satisfaction of the patient/family/POA. Time-Out: A pre-procedural Time-Out was completed immediately before starting the procedure and confirmed: Patient Identification, Site, Procedure, Patient Position and the Availability of Requisite Equipment. Clinical Indications: Acute post-operative pain management requested by the operative surgeon. Nerve Block Insertion Note Anes-nerve block: posterior fossa sciatic (20cc) and adductor canal (10cc) right Patient position: supine Skin prep: chlorhexidine Needle: 22 gauge, stimulating, insulated echogenic needle. Needle length: 80 mm Technique: ultrasound (in plane) Injectate: bupivacaine 0.25% with epi 5 mcg/ml (30cc) Observations: tolerated well Complications: none Procedure start time:: 1200 Procedure end time:: 1205
--- NOTE | 2022-12-12 12:03 | WPDHPUPDATE1 ---
History and Physical Update Update Date/Time: 12/12/22 12:03 History and Physical has been reviewed, including an updated exam of the patient. There are NO changes in the patient's condition. Risks, benefits, and alternatives have been discussed and questions answered. Patient agrees to proceed with procedure.
[2022-12-12] MEDS: VANCOMYCIN HCL 1,000 MG VIAL 1000 MG IRRIGATION (13:08)
--- NOTE | 2022-12-12 15:39 | W.PM.PROC2 ---
Procedure Note - Detailed Date of Procedure 12/12/22 Pre-op Diagnosis right mike b-c ankle trimalleolar fracture Post-op Diagnosis Same Procedure Performed Open reduction internal fixation right trimalleolar ankle fracture without fixation of posterior lip Surgeon Gaurav Grimes MD Client Resolution Specialist Philip swan Anesthesia General Description of Procedure Patient was brought to the operating room and general anesthesia was administered. He received a saphenous nerve block and popliteal nerve block in the preop holding area. He received weight based vancomycin will 750 of Levaquin preoperatively. History of allergy to Keflex causing hives. The right leg was prepped draped usual fashion after placing of bump of blankets under the right buttock a role under the right thigh. Skin was scrubbed with a chlorhexidine cloth earlier to dry at this time we prepped with DuraPrep and covered the skin with Ioban completely. Limb was exsanguinated tourniquet elevated to 300 mmHg. A 6 in longitudinal incision was made over the lateral malleolus centered over the fracture. We looked for the superficial branch of peroneal nerve but did not encounter it. Fracture was exposed hematoma removed. There was a long posterior butterfly fragment proximally. We were able to obtain anatomic reduction between the anterior portion of the proximal shaft fragment and the distal fragment this was held with bone reduction clamps and an interfragmentary screw 2.7 mm was placed anterior to posterior through a gliding hole which obtained good purchase. A 7 hole 1/3 tubular locking plate was contoured and this was going to give this 3 bicortical screws proximally and 3 bicortical screws or 2 screws and a syndesmotic tight rope fixation device distal fracture. The distal portion of the plate was stabilized with ball-tipped pin. Proximally the plate followed a lateral ridge and it fit best being slightly anterior on the shaft. A locking was placed in the 3rd from most proximal hole which compress the plate to the bone nicely. We then placed a locking screw 3rd from most distal and the distal and proximal most holes and 2nd from proximal drilled with locking screw leaving the 2nd from distal open. We approached the medial side the ankle through a 2 in incision dissection carefully brought down to the anterior colliculus fracture of the medial malleolus. Longitudinal dissection and careful retraction avoided the saphenous nerve and vein which we were visualized to look out for. Periosteum was removed from the fracture site and retracted off the metaphysis surface exposing about 3 mm of bone to accurately visualize the fracture site and anatomic reduction was achieved held with bone clamp and a guide pin inserted through the center of the anterior colliculus angle slightly posterior to be approximately perpendicular to the fracture. Confirmation of pin placement confirmed fluoroscopically and this was drilled and a 46 mm longer partially-threaded cannulated 4.0 cancellous screw was placed with screw which obtained excellent purchase and compression. We then assessed the mortise. The mortise looked anatomic both the medial clear space and the syndesmosis. A towel clip was placed on the distal fibular shaft just above the joint line and a pull test was performed and there was no widening of medial clear space or widening of syndesmosis. Next a valgus external rotation stress was applied the foot and this calls caused no widening of medial clear space and no widening of syndesmotic space with the nonstress and stress images visualized [id number] on the to fluoroscopic screens. This reason I did not feel syndesmotic tight rope was necessary as there was no syndesmotic instability. We placed a locking screw in the 2nd from most distal hole completing the fixation. Wounds were thoroughly irrigated with normal saline mixed with 1 g of vancomycin solution. We put the tourniquet down at about 65 minutes
[2022-12-12] MEDS: fentaNYL CITRATE INJ (*CRX) 100 MCG/2 ML VIAL 25 MCG IV PUSH ×6 (15:45→16:25)
[2022-12-12] MEDS: oxyCODONE HCL (*CRX) 5 MG TAB IR PO (17:23)
[2022-12-12] MEDS: ACETAMINOPHEN 500 MG TABLET 1000 MG PO (17:23)
== END 2022-12-12 18:15 | disposition home or self-care (01) ==
PROVIDERS: PCP Emergency Medicine; Visit Provider Orthopaedic Surgery
PROC: (CPT 27822; principal; 2022-12-12 12:00)
DX: S82.851A Displaced trimalleolar fracture of right lower leg, initial encounter for closed fracture (principal); G89.18 Other acute postprocedural pain; W10.8XXA Fall (on) (from) other stairs and steps, initial encounter; I10 Essential (primary) hypertension; E78.5 Hyperlipidemia, unspecified; K21.9 Gastro-esophageal reflux disease without esophagitis; M47.816 Spondylosis without myelopathy or radiculopathy, lumbar region; Z90.49 Acquired absence of other specified parts of digestive tract
CPT/HCPCS: 27822; 64445; 64447; 36415; 82306; 99199; A9270; C1713; C1769; J1100; J1885; J1956; J2250; J2405; J2704; J3010; J3370; J7120

== ENCOUNTER 2023-02-04 14:32 | Outpatient (CLI) | payer MEDICARE, BC, OTHER, SELFPAY ==
--- NOTE | ~2023-02-04 | DEXA_ITS ---
Bone Density Report Name: DARLENE WHITE Age: 67 Sex: Male Ethnicity: White Date of : 1955 Indication: prior fracture; Referring Provider: DARLENE CLEMENTE Study: Bone densitometry was performed. Exam Date: February 04, 2023 Accession number: [id number] Bone Density: Region BMD T-score Z-score Classification AP Spine(L1-L4) 1.038 -0.5 0.3 Normal Femoral Neck (Left) 0.732 -1.5 -0.4 Osteopenia Total Hip (Left) 0.998 -0.2 0.3 Normal Femoral Neck (Right) 0.762 -1.2 -0.2 Osteopenia Total Hip (Right) 0.983 -0.3 0.2 Normal Total Hip Mean 0.990 -0.3 0.3 Normal World Health Organization criteria for BMD impression classify patients as: Normal (T-score at or above -1.0), Osteopenia (T-score between -1.0 and -2.5), or Osteoporosis (T-score at or below -2.5). Clinical Information Provided by Patient: Has had a low trauma fracture Has used the following medications: Vitamin D Patient maximum height was 71 No regular weight bearing exercise Impression: The patient has low bone mass, based on the Left Femoral Neck T-score. The patient has risk factors, including: previous fracture. Discussion: BONE DENSITY IS LOW AT ONE OR MORE SKELETAL SITES. This patient's lowest T-score is low at one or more skeletal sites. It meets the World Health Organization's (WHO) criteria for ?low bone mass? (T-score between -1.0 and -2.5). The patient's 10-year risk of fracture as calculated by FRAX is less than the threshold where pharmacological therapy is recommended by the National Osteoporosis Foundation (NOF). However, all treatment decisions require clinical judgment and consideration of individual patient factors, including patient preferences, comorbidities, previous drug use, risk factors not captured in the FRAX model (e.g., frailty, falls, vitamin D deficiency, increased bone turnover, interval significant decline in bone density) and possible under or overestimation of fracture risk by FRAX. The patient should follow a healthful lifestyle (good nutrition with adequate calcium and vitamin D, and appropriate weight-bearing exercise). Follow-Up: Consider repeating this study in 2 to 3 years to reassess this patient's status, or sooner if there is some new clinical indication. Reported by: TAM on 02/04/2023 2:52:00 PM. Reviewed, dictated and finalized at location A. [facility]
== END 2023-02-04 14:33 | disposition home or self-care (01) ==
LOC: ANHIMG 14:34
PROVIDERS: PCP Emergency Medicine; Visit Provider Orthopaedic Surgery
DX: M81.0 Age-related osteoporosis without current pathological fracture (principal); M85.852 Other specified disorders of bone density and structure, left thigh; M85.851 Other specified disorders of bone density and structure, right thigh
CPT/HCPCS: 77080

== ENCOUNTER 2023-12-28 09:32 | Outpatient (CLI) | payer MEDICARE, BC, OTHER, SELFPAY ==
[2023-12-28 12:05] LABS: Alanine Aminotransferase 39 U/L (6-50); Albumin Level 4.8 g/dL (3.5-5.1); Alkaline Phosphatase 54 U/L (38-126); Anion Gap 8 mmol/L (4-12); Aspartate Amino Transferase 42 U/L (17-59); Bilirubin,Total 0.7 mg/dL (0.2-1.3); Blood Urea Nitrogen 18 mg/dL (9-20); Calcium 10.4 mg/dL (8.4-10.2); Carbon Dioxide 25 mmol/L (22-30); Chloride 108 mmol/L (98-107); Cholesterol 198 mg/dL (0-200); Estimated Glomerular Filt Rate > 60; Glucose 114 mg/dL (65-110); HDL Direct 59 mg/dL; Potassium 4.1 mmol/L (3.4-5.0); Sodium 141 mmol/L (137-145); Triglycerides 80 mg/dL (<150)
[2023-12-28 12:16] LABS: LDL Cholesterol Direct 116 mg/dL
[2023-12-28 13:58] LABS: Hepatitis C Virus Antibody Negative (Negative)
[2023-12-28 15:45] LABS: Hemoglobin A1C 5.7 % (<5.7)
== END 2023-12-28 09:33 | disposition home or self-care (01) ==
PROVIDERS: PCP Family Medicine; Visit Provider Nurse Practitioner Family
DX: R73.03 Prediabetes (principal); I10 Essential (primary) hypertension; Z79.899 Other long term (current) drug therapy; Z11.59 Encounter for screening for other viral diseases
CPT/HCPCS: 36415; 80053; 80061; 83036; 86803

== ENCOUNTER 2024-08-18 10:10 | Outpatient (CLI) | payer MEDICARE, BC, SELFPAY ==
--- NOTE | ~2024-08-18 | MR_ITS ---
EXAMINATION: MR foot RT wo con DATE: 08/18/2024 11:04 INDICATION: Right foot second toe pain. Metatarsalgia. TECHNIQUE: Magnetic resonance imaging (MRI) of the right foot was performed without intravenous contr ast. COMPARISON: Right ankle radiographs 12/04/2022 FINDINGS: Bone alignment is normal. No acute fracture. There is a skin marker dorsal to second metata rsophalangeal joint. There is severe osteoarthritis of second metatarsophalangeal joint including bon e volume loss of the metatarsal head, edema-like marrow signal intensity, and osteophytes. There is m oderate osteoarthritis of first metatarsophalangeal joint. There is mild osteoarthritis of some of th e midfoot joints and some of the interphalangeal joints. The flexor and extensor tendons are normal. Lisfranc ligament is normal. IMPRESSION: 1. 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 Reviewed, dictated and finalized at location A. PER DRIVER
== END 2024-08-18 10:11 | disposition home or self-care (01) ==
LOC: MICIMG 10:12
PROVIDERS: PCP Family Medicine; Visit Provider Podiatrist Foot & Ankle Surgery
DX: M19.071 Primary osteoarthritis, right ankle and foot (principal)
CPT/HCPCS: 73718